=== PATIENT | female | born 1960 | race Caucasian/White ===

== ENCOUNTER 2017-07-27 13:21 | Inpatient (IN) ==
[2017-07-27] MEDS ORDERED: D5 NS 1,000 ML IV ONE (14:04)
[2017-07-27 14:08] LABS: URINE MICRO REVIEW NEEDED? NO; URINE SOURCE VOIDED
[2017-07-27 14:12] LABS: BILIRUBIN URINE NEGATIVE (NEGATIVE); BLOOD URINE TRACE (NEGATIVE); COLOR ORANGE; GLUCOSE URINE NEGATIVE (NEGATIVE); LEUKOCYTES URINE LARGE (NEGATIVE); NITRITE URINE POSITIVE (NEGATIVE); PROTEIN URINE 30 mg/dL (NEGATIVE); SP GRAVITY URINE 1.014; TURBIDITY URINE HAZY (CLEAR); UR EPITHELIAL CELLS <10 /HPF (<10); URINE BACTERIA 4+ /HPF; URINE RBC <10 /HPF (<10); URINE WBC TNTC /HPF (<10); UROBILINOGEN URINE 4 mg/dL (NORMAL)
--- NOTE | 2017-07-27 14:34 | Diag Imaging Result Doc PS360 ---
EXAM: CHEST-2 VIEWS INDICATION: cough TECHNIQUE: 2 views COMPARISON: None. FINDINGS: The lungs are grossly clear. There is no discrete pleural fluid collection or pneumothorax. There is a small hiatal hernia. The cardiac silhouette and central vasculature are grossly unremarkable. IMPRESSION: Small hiatal hernia. No definite acute pathology. Electronically signed by Lonnie Tang 07/27/2017 2:31 PM
--- NOTE | 2017-07-27 14:54 | Diag Imaging Result Doc PS360 ---
EXAM: CT ABDOMEN/PELVIS W/O CONTRAST INDICATION: left flank tenderness TECHNIQUE: Dose reduction protocol was used. COMPARISON: None. FINDINGS: There is a small hiatal hernia. There is a huge solid mass that is arising from the left kidney that measures up to 13.9 x 10.5 cm axially and up to 12.8 cm craniocaudally. Its density is heterogeneous suggesting likely internal necrosis and there are coarse calcifications scattered throughout the mass. This mass is highly worrisome for neoplasm; specifically, renal cell carcinoma. There appears to be partial obstruction of the proximal left ureter by the mass and there is mild prominence of the left renal collecting system. The right kidney is grossly unremarkable as imaged with unenhanced CT. The urinary bladder is grossly unremarkable as imaged. The liver, spleen, pancreas, and adrenal glands are grossly unremarkable. There is incidental fatty infiltration of the colonic wall, which is nonspecific but can sometimes be seen in patients with high BMI. Otherwise, the GI tract is essentially unremarkable. There is nothing that would indicate bony metastatic disease. IMPRESSION: 1.Very large left renal mass that is highly compatible with neoplasm, namely renal cell carcinoma. 2.Other incidental/nonacute findings detailed above. Electronically signed by Lonnie Tang 07/27/2017 2:51 PM
[2017-07-27 15:01] LABS: BASO% 0.1 % (0.0-0.8); EOS# 0.01 X1000 (0.0-0.7); EOS% 0.1 % (0.0-10.0); HEMATOCRIT 36.3 % (37.0-47.0); HEMOGLOBIN 12.5 g/dL (12.0-16.0); IMM GRAN# 0.02 X1000 (0.0-0.04); IMM GRAN% 0.2 % (0.0-0.5); LYMPH# 0.67 X1000 (1.2-3.4); MANUAL DIFF NEEDED? NO; MCH 30.2 PG (27-31); MCHC 34.4 g/dL (33-37); MCV 87.7 FL (81-99); MONO# 0.13 X1000 (0.11-0.59); MONO% 1.6 % (1.7-9.3); MPV 9.4 FL (7.4-10.4); PLT 202 X1000 (130-400); RBC 4.14 XMIL (4.2-5.4)
[2017-07-27 15:28] LABS: AGAP 16; ALKALINE PHOSPHATASE 113 U/L (32-104); AMYLASE 24 U/L (20-200); BUN 8 mg/dL (8-22); CALCIUM 9.4 mg/dL (8.8-10.2); CHLORIDE 91 mmol/L (98-107); COSMO 272; GOT 20 U/L (10-30); GPT 22 U/L (10-36); LIPASE 11 U/L (13-60); POTASSIUM 2.8 mmol/L (3.5-5.1); SODIUM 136 mmol/L (136-145); TCO2 29 mmol/L (25-35); TOTAL BILIRUBIN 1.37 mg/dL (0.20-1.00); TOTAL PROTEIN 6.4 g/dL (6.3-8.3)
[2017-07-27] MEDS ORDERED: ROCEPHIN 1 GM in NS 50 ML IV ONE (15:29)
[2017-07-27] MEDS ORDERED: KLOR-CON PO ONE (15:42)
--- NOTE | 2017-07-27 16:08 | PROVIDER DOCUMENTATION ---
This chart was entered by Yoko Vizcaino Scribe, acting as scribe for Keny Gale DO. HPI-Female /OB/Breast - General Chief Complaint: General Adult Stated Complaint: GENERAL ADULT Time Seen by Provider: 07/27/17 13:32 Source: reports: patient Allergies/Adverse Reactions: Patient Allergies Allergy/AdvReac Type Severity Reaction Status Date / Time No Known Allergies Allergy Verified 07/27/17 13:51 Home Medications: Home Medication List Medication Instructions Recorded Confirmed Last Taken Type Cyanocobalamin (Vitamin B-12) 2,500 mcg PO DAILY 07/27/17 07/27/17 07/27/17 History [Vitamin B12] Omeprazole [Prilosec] 20 mg PO DAILY@0700 07/27/17 07/27/17 07/27/17 History - History of Present Illness-Female /OB Nature of Presenting Problem: Pt is a 57 y/o F presents to the ED with low back pain, foul smelling urine, headache and dizziness. Pt states has lost 15 pounds in last 2 months. Pt denies fever. Pt denies hx of diabetes or HTN. Does patient report she is ?: No Location of complaint: reports: urethral Radiation: reports: none Quality of Pain: reports: aching Severity in ED: reports: mild Onset/Duration: reports: other (2 mths) Timing: reports: still present Context/Activities at Onset: reports: light activity Vaginal Symptoms: reports: foul odor Vaginal Bleeding Amount: None Urinary Symptoms: reports: low back pain Leakage of Fluid: none Modifying Factors: improves with: nothing Associated Symptoms: reports: dizziness, other (WAGONER) Similar Symptoms Previously?: Yes (present for 2 months ) Recently seen or treated by another doctor?: No Review of Systems - Adult - REVIEW OF SYSTEMS - ADULT Constitutional: reports: weight loss (15 lbs). denies: chills, fever Eyes: reports: no symptoms reported Ears, Nose, Mouth & Throat: reports: no symptoms reported Cardiovascular: reports: no symptoms reported Respiratory: reports: no symptoms reported Gastrointestinal: reports: no symptoms reported Genitourinary: reports: other (foul odor). denies: dysuria, hematuria Musculoskeletal: reports: back pain. denies: bone pain, neck pain Integumentary: reports: no symptoms reported Neurological: reports: dizziness/vertigo (dizziness), headache/migraines (WAGONER). denies: numbness, seizure, syncope Psychiatric: reports: no symptoms reported Endocrine: reports: no symptoms reported Hematologic/Lymphatic: reports: no symptoms reported Allergic/Immunologic: reports: no symptoms reported All Other Systems: Reviewed and Negative Past History - Adult - PAST MEDICAL HISTORY-ADULT Review of Records: reports: Nursing Assessment Review, Medications Reviewed, Social history reviewed & non-contributory. Major Childhood Illnesses: reports: denies history Cardiovascular: reports: denies history Respiratory: reports: denies history Gastrointestinal: reports: GERD Obstetrical/Gynecological: reports: denies history Genitourinary: reports: denies history Musculoskeletal: reports: denies history Neurological: reports: denies history Endocrine/Immune: reports: denies history Other Conditions: reports: denies history - PRIOR SURGERIES/PROCEDURES Surgical/Procedure History: reports: reviewed, not pertinent - IMMUNIZATION STATUS Childhood Immunizations: See Nurse Assessment Flu Vaccine: See Nurse Assessment - FAMILY HISTORY Family History: reviewed, not pertinent - SOCIAL HISTORY Smoking: denies Substance Use: denies Living Situation: family Physical Exam-General - PHYSICAL EXAM-ADULT Initial Vital Signs Reviewed: Yes - CONSTITUTIONAL General Appearance: appears well, alert, no apparent distress. negative: lethargic, slow to respond - EYES Eyes: PERRL/EOMI, pink conjunctivae. negative: pale conjunctivae, sunken eyes - HEAD, EARS, NOSE, MOUTH & THROAT HENMT: normal ENT inspection. negative: angioedema, hearing deficit - NECK Neck: normal inspection. negative: lymphadenopathy, tender lateral - RESPIRATORY Respiratory: chest non-tender, lungs clear, normal breath sounds. negative: crackles, rhonchi - CARDIOVASCULAR Cardiovascular: normal peripheral pulses, regular rate, rhythm. negative: tachycardia, systolic murmur, gallop/S3 - GASTROINTESTINAL (ABDOMEN) Abdominal Exam: normal bowel sounds, soft, tenderness (left flank). negative: guarding, rebound - LYMPHATIC Lymphatic: no adenopathy. negative: enlargement, streaking - MUSCULOSKELETAL Back Exam: normal inspection. negative: ecchymosis, vertebral tenderness Extremity: normal inspection. negative: deformity, erythema, tenderness - SKIN Integumentary: normal color, normal turgor, warm/dry. negative: diaphoresis, erythema, jaundice, swelling - NEUROLOGIC Neurologic: grossly normal. negative: abnormal gait, facial droop - PSYCHIATRIC Psych/Mental Status: normal mood/affect, oriented x 3. negative: paranoid, tearful Progress - PLAN OF CARE/RESULTS Progress/Plan/Lab Results: Vital Signs - 8 hr 07/27/17 13:30 Temperature 98.7 F Pulse Rate 99 H Respiratory Rate 18 Blood Pressure 132/59 O2 Sat by Pulse Oximetry 99 Laboratory Results - last 24 hr 07/27/17 07/27/17 07/27/17 13:48 14:45 14:45 WBC RBC Hgb Hct MCV MCH MCHC RDW Std Deviation Plt Count MPV Immature Gran % (Auto) Neut % (Auto) Lymph % (Auto) [place] % (Auto) Eos % (Auto) Baso % (Auto) Immature Gran # (Auto) Neut # (Auto) Lymph # (Auto) [place] # (Auto) Eos # (Auto) Baso # (Auto) Sodium 136 Potassium 2.8 L Chloride 91 L Carbon Dioxide 29 Anion Gap 16 BUN 8 Creatinine 0.8 Estimated GFR/1.73 m2 > 60 BUN/Creatinine Ratio 10 Glucose 126 H Calculated Osmolality 272 Calcium 9.4 Total Bilirubin 1.37 H AST 20 ALT 22 Alkaline Phosphatase 113 H Troponin T Oud-T-Oacpsffdipq Pept 521 H Total Protein 6.4 Albumin 4.0 Globulin 2.4 Albumin/Globulin Ratio 1.7 Amylase 24 Lipase 11 L Plasma Lactate Urine Source VOIDED Urine Color ORANGE Urine Turbidity HAZY Urine pH 6.0 Ur Specific [place] 1.014 Urine Protein 30 A Ur Glucose (Stick) NEGATIVE Ur Ketones (Stick) TRACE A Urine Blood TRACE A Urine Nitrite POSITIVE A Urine Bilirubin NEGATIVE Urobilinogen Dipstick 4 A Urine Leukocytes LARGE A Urine WBC (Auto) TNTC A Urine RBC (Auto) <10 U Epithel Cells (Auto) <10 Urine Bacteria (Auto) 4+ 07/27/17 07/27/17 07/27/17 14:45 14:47 15:00 WBC 8.35 RBC 4.14 L Hgb 12.5 Hct 36.3 L MCV 87.7 MCH 30.2 MCHC 34.4 RDW Std Deviation 13.3 Plt Count 202 MPV 9.4 Immature Gran % (Auto) 0.2 Neut % (Auto) 90.0 H Lymph % (Auto) 8.0 L [place] % (Auto) 1.6 L Eos % (Auto) 0.1 Baso % (Auto) 0.1 Immature Gran # (Auto) 0.02 Neut # (Auto) 7.51 H Lymph # (Auto) 0.67 L [place] # (Auto) 0.13 Eos # (Auto) 0.01 Baso # (Auto) 0.01 Sodium Potassium Chloride Carbon Dioxide Anion Gap BUN Creatinine Estimated GFR/1.73 m2 BUN/Creatinine Ratio Glucose Calculated Osmolality Calcium Total Bilirubin AST ALT Alkaline Phosphatase Troponin T < 0.010 Bmd-R-Cvzemborblm Pept Total Protein Albumin Globulin Albumin/Globulin Ratio Amylase Lipase Plasma Lactate 1.9 Urine Source Urine Color Urine Turbidity Urine pH Ur Specific [place] Urine Protein Ur Glucose (Stick) Ur Ketones (Stick) Urine Blood Urine Nitrite Urine Bilirubin Urobilinogen Dipstick Urine Leukocytes Urine WBC (Auto) Urine RBC (Auto) U Epithel Cells (Auto) Urine Bacteria (Auto) Orders Category Date Time Status Nursing- MD Consult Request ROUTINE Care 07/27/17 15:45 Active Nursing- MD Consult Request ROUTINE Care 07/27/17 15:45 Active Nursing- Obtain EKG once Care 07/27/17 13:58 Active MD [Physician/Provider Consults] Routine Cons 07/27/17 15:45 Ordered MD [Physician/Provider Consults] Routine Cons 07/27/17 15:45 Ordered CHEST-2 VIEWS [RAD] Stat Exams 07/27/17 13:[address] ABDOMEN/PELVIS W/O CONTRAST [CT] Stat Exams 07/27/17 13:58 Completed AMYLASE [CHEM] Stat Lab 07/27/17 14:45 Completed CBC WITH ELECTRONIC DIFF [HEME] Stat Lab 07/27/17 14:47 Completed COMPREHENSIVE METABOLIC PANEL [CHEM] Stat Lab 07/27/17 14:45 Completed LACTATE, PLASMA [CHEM] Stat Lab 07/27/17 15:00 Completed LIPASE [CHEM] Stat Lab 07/27/17 14:45 Completed PRO B-NATRIURETIC PEPTIDE Stat Lab 07/27/17 14:45 Completed TROPONIN T Stat Lab 07/27/17 14:45 Completed URINALYSIS-1 [URINALYSIS] Stat Lab 07/27/17 13:48 Completed URINE CULTURE [RM] Routine Lab 07/27/17 13:48 Received CefTRIAXONE [Rocephin] 1 gm Med 07/27/17 15:29 Discontinued 0.9% Sodium Chloride Inj [Ns] 50 ml IV NOW Dextrose 5%-0.9% NaCl Inj [D5 Ns] 1,000 ml Med 07/27/17 14:04 Discontinued IV Wide Open Potassium Chloride E.r. [Klor-Con] Med 07/27/17 15:42 Discontinued 60 meq PO NOW ONE EKG [EKG] Stat Ther 07/27/17 13:58 Ordered Transfer/Admit Order [TRANSFER] Routine Transfer 07/27/17 15:46 Ordered SPOKE WITH AND SHE HAS ACCEPTED THE ADMISSION. Result Diagrams: 07/27/17 14:47 07/27/17 14:45 - EKG 1 Time of EKG reading by physician:: 14:49 EKG Read and Signed by:: Maura Salinas EKG Interpretation (*Must complete 3 of following elements*): Abnormal Rate: 124 Rhythm: sinus tachycardia Comments: nonspecific ST and T wave abnormality. - XRAY 1 XRAY Study: Chest Impression: Normal XRAY Interpretation: Small hiatal hernia. No definite acute pathology - CT/MRI 1 CT Study: Abdomen, Pelvis Impression: Abnormal (1.Very large left renal mass that is highly compatible with neoplasm, namely renal cell carcinoma. 2.Other incidental/nonacute findings detailed above) Departure - Departure Date of Disposition Decision: 07/27/17 Time of Disposition Decision: 16:06 DIAGNOSIS: Renal mass UTI (urinary tract infection) Qualifiers: Urinary tract infection type: site unspecified Hematuria presence: without hematuria Qualified Code(s): N39.0 - Urinary tract infection, site not specified Disposition: ADMITTED INPATIENT 09 Certified Medical Emergency: Emergent Condition: Stable - Critical Care Note This patient required my direct & personal management of CC.: No Attestation - Physician/ BRANDON Attestation Patient care was provided by Advanced Practice Provider:: No The physician spent face to face time with patient:: Yes Advanced Practice Provider documentation review:: Supervising physician onsite and consulted in the evaluation and care of this patient. The physician did have a face to face encounter with the patient. This chart was documented by the indicated scribe, (Yoko Vizcaino Scribe) and accurately reflects the services I performed and decisions made by me, Keny Gale DO, as attested by the provider's signature.
--- NOTE | 2017-07-27 16:40 | EKG Report ---
Test Performed on : 07/27/2017 2:49:03 PM Test Reason : r/o CT Blood Pressure : / mmHG Vent. Rate : 124 BPM Atrial Rate : 124 BPM P-R Int : 150 ms QRS Dur : 070 ms QT Int : 330 ms P-R-T Axes : 063 069 026 degrees QTc Int : 474 ms Sinus tachycardia. Nonspecific ST and T wave abnormality Abnormal ECG When compared with ECG of 03-FEB-2008 08:49, No significant change was found Unconfirmed Result
[2017-07-27] MEDS ORDERED: PHENERGAN PO PRN (16:48)
[2017-07-27] MEDS: NS 1,000 ML IV SCH (17:19)
[2017-07-27] MEDS: ROCEPHIN 1 GM in NS 50 ML IV SCH (17:20)
[2017-07-27] MEDS: ZOFRAN IV PRN (17:20)
[2017-07-27] MEDS: TYLENOL PO PRN (17:20)
--- NOTE | 2017-07-27 18:09 | HISTORY AND PHYSICAL ---
PRIMARY CARE PROVIDER: No one. CHIEF COMPLAINT: Multi symptoms such as night sweats, nausea, dizziness, no energy, dysuria. HISTORY OF PRESENT ILLNESS: Ms. Sabina Knight is a 57-year-old female with essentially no medical history other than anxiety in the past but currently on no medications. Comes in with complaints of 2 months of decreased appetite, nausea with vomiting green bile, night sweats with chills, dizziness, no energy, weakness. For more than 2 months she has had also foul smelling urine, painful urination, urgency and frequency. That included lower back pain primarily on the left lower back. She states that about 3 weeks ago. She woke up with extreme lower leg pain and hip pain after waking up from sleep. That was a one-time occurrence. She states about 2 or 3 weeks ago she was at an event that was outside and felt like she was even going to pass out. She never went to seek medical advice. Apparently she has also lost her job 1 month ago secondary to frequent sickness and she has no insurance, and she states because of this, she does not have a primary care provider and has waited this long to seek medical advice. Urinalysis reveals that she is positive nitrite with a significant urinary tract infection. Her abdominal pelvic CT shows that she has a left renal mass that is compatible with neoplasm, specifically renal cell carcinoma. It is large in size at 13.9 x 10.5 cm up to 12.8 cm. Her symptoms are consistent with carcinoma. We will admit to the medical floor, treat all of her symptoms, her anxiety, her nausea. We will consult Urology and Oncology. PAST MEDICAL HISTORY: Anxiety. SURGICAL HISTORY: Tubal ligation and left breast biopsy x2 that were benign. SOCIAL HISTORY: Denies tobacco, alcohol. States she smoked marijuana once last month to try and help with her nausea and she states that it did help. She lost her job about 1 month ago. She lives at home alone and frequently goes to [employer]. FAMILY HISTORY: Father and grandfather had coronary artery disease, and her mother of natural causes. REVIEW OF SYSTEMS: Fourteen point review of systems were complete and all were negative except for those mentioned in above HPI. All pertinent positives were nausea, night sweats, chills, dizziness, near syncope, no energy, foul smelling urine, painful urination, urinary urgency, urinary frequency, left lower back pain. No other complaints. ALLERGIES: No known drug allergies. HOME MEDICATIONS: Vitamin B12 2500 mcg p.o. daily, Prilosec 20 mg p.o. daily. PHYSICAL EXAMINATION: VITAL SIGNS: Temperature 98.7 degrees, heart rate 136 but was 99 on admit, respiratory rate 20, blood pressure 113/60, O2 saturation 100% on room air. 5 feet 4 inches tall, 130 pounds, BMI 22.3. GENERAL: Ms. Sabina Knight is a 57-year-old female. She is in no acute distress. She is able answer questions appropriately. HEENT: Atraumatic, normocephalic. Pupils equal, round, reactive to light. Mucous membranes are dry. NECK: Trachea midline. CARDIOVASCULAR: S1, S2. Tachycardic rate and rhythm. No rubs, gallops, or murmurs. No JVD or carotid bruits. No lower extremity edema. She has got +2 dorsalis and radial pulses. PULMONARY: Clear to auscultation. Bilateral breath sounds. No accessory muscle use or work of breathing noted. Currently on room air. GI: Soft, tender in the bilateral lower quadrants. Positive bowel sounds x4. EXTREMITIES: Moves all extremities equally. SKIN: Warm, dry, intact. Somewhat pale. NEURO: A and O x4. Moves all extremities equally. LABORATORY DATA: White blood cell 8000, hemoglobin 12, hematocrit 36, platelet count 202,000. Sodium 136, potassium 2.8, BUN 8, creatinine 0.8, glucose 126, calcium 9.4, bilirubin is 1.37, AST 20, ALT 22. Alkaline phos 113. Troponin less than 0.01. ProBNP 521. Amylase 24, lipase 11, lactate 1.9. Urinalysis 30 protein, trace ketones, trace blood, positive nitrites, large leukocytes, too numerous to count white blood cells, and 4+ bacteria. IMAGING: Abdominal pelvic CT: Very large left renal mass that is highly compatible with neoplasm, namely renal cell carcinoma. Chest x-ray: Small hiatal hernia. No acute pathology. EKG: Sinus tachycardia, rate 124, QTc is 474. ASSESSMENT/PLAN: 1. Left renal mass likely with renal cell carcinoma. Urology is consulted. Oncology is consulted. Will follow their recommendations. 2. Urinary tract infections. Has been started on Rocephin. Will give IV fluid hydration. 3. Intractable nausea with some vomiting. Will do p.o. Phenergan and IV Zofran. 4. Hypokalemia. She has received 60 of p.o. potassium. Will recheck in the morning. EKG is okay, is sinus tachycardia, no ST changes. 5. Anxiety. Klonopin 3 times a day p.r.n. for anxiety. She states that this has helped in the past. 6. Gastrointestinal prophylaxis. Continue her home proton pump inhibitor. 7. Deep venous thrombosis prophylaxis. Will do SCDs. Dictated by EMMA Guzmán for Darion Loza MD Addendum: Patient seen and examined by myself. Agree with EMMA note. It reflects my assessment and plan. Patient admitted to hospital for not feeling well for last 2 weeks and mild abdominal pain. The CT of abdomen done in the ER showed left renal mass highly suspicious for renal cell carcinoma. Will consult Urology and Oncology. cc: EMMA Guzmán MD [facility]
--- NOTE | 2017-07-27 21:41 | Diag Imaging Result Doc PS360 ---
EXAM: CT ABD/PELVIS W/PO AND IV CON INDICATION: uti, renal mass TECHNIQUE: Dose reduction protocol was used. COMPARISON: Unenhanced CT dated 07/27/2017 FINDINGS: The known very large mass arising from the left kidney seen on the recent unenhanced study is again identified. It exhibits extensive enhancement at its periphery with poor enhancement centrally suggesting central necrosis. As stated previously, this is highly consistent with neoplasm, specifically renal cell carcinoma. It measures 14.0 x 10.9 cm axially. In the right kidney there is a much smaller lesion that is partially cystic but appears to enhance at its periphery. This is also suspicious for a potential neoplasm. It can be seen on image 70 of series 3 and measures up to 2.0 x 1.8 cm axially. This lesion cannot be identified on the unenhanced study due to its small size. At the lower pole of the right kidney there are a couple small simple appearing cysts. No definite lymphadenopathy is appreciated. The renal veins and arteries are patent. The urinary bladder is unremarkable. There is no evidence of metastatic disease to the other solid organs of the abdomen. The abdomen and pelvis are otherwise grossly stable as compared to the recent unenhanced study. IMPRESSION: 1.Known very large left renal mass highly consistent with neoplasm as described. 2.Much smaller suspicious right renal lesion as detailed above. 3.Otherwise, the abdomen and pelvis are essentially stable as compared to the recent unenhanced study. Electronically signed by Lonnie Tang 07/27/2017 9:39 PM
[2017-07-28] MEDS: PRILOSEC PO SCH (06:33)
[2017-07-28] MEDS: ZOFRAN IV PRN (06:33)
[2017-07-28 07:03] LABS: INR 1.04; PROTIME 10.9 Seconds (9.2-11.7); PTT 32.9 Seconds (22.0-36.0)
[2017-07-28 07:05] LABS: BASO% 0.1 % (0.0-0.8); EOS# 0.04 X1000 (0.0-0.7); EOS% 0.5 % (0.0-10.0); HEMATOCRIT 32.1 % (37.0-47.0); HEMOGLOBIN 10.9 g/dL (12.0-16.0); LYMPH# 0.84 X1000 (1.2-3.4); LYMPH% 9.5 % (20.5-51.1); MANUAL DIFF NEEDED? YES; MCH 30.2 PG (27-31); MCV 88.9 FL (81-99); MONO% 4.5 % (1.7-9.3); MPV 9.6 FL (7.4-10.4); NEUT% 85.4 % (42.2-75.2); PLT 158 X1000 (130-400); RBC 3.61 XMIL (4.2-5.4)
[2017-07-28 07:08] LABS: AGAP 12; ALBUMIN 3.5 g/dL (3.5-5.0); ALKALINE PHOSPHATASE 90 U/L (32-104); BUN 6 mg/dL (8-22); CALCIUM 8.3 mg/dL (8.8-10.2); CHLORIDE 97 mmol/L (98-107); COSMO 277; GOT 16 U/L (10-30); GPT 16 U/L (10-36); POTASSIUM 2.6 mmol/L (3.5-5.1); SODIUM 139 mmol/L (136-145); TCO2 30 mmol/L (25-35); TOTAL BILIRUBIN 0.78 mg/dL (0.20-1.00); TOTAL PROTEIN 5.4 g/dL (6.3-8.3)
[2017-07-28 07:18] LABS: BANDS 10 % (0-1); LYMPHS 2 % (21-51); MONO 2 % (1-9)
[2017-07-28] MEDS: TYLENOL PO PRN ×2 (07:21→18:24)
[2017-07-28] MEDS ORDERED: MORPHINE IV PRN (07:46)
[2017-07-28] MEDS: NS 1,000 ML IV SCH (07:50)
[2017-07-28] MEDS: POTASSIUM CHLORIDE 60 MEQ in NS 500 ML IV SCH ×2 (09:23→18:23)
[2017-07-28] MEDS: VITAMIN B-12 PO SCH (09:30)
--- NOTE | 2017-07-28 11:11 | CONSULTATION ---
DATE OF CONSULTATION: 07/28/2017 ATTENDING AND REFERRING PHYSICIAN: Hospitalist HISTORY OF PRESENT ILLNESS: This 57-year-old female was admitted with fatigue, weight loss and just not feeling well. She states this started 4 to [address] scan without contrast revealed a large left renal mass. A CT scan with oral and IV contrast confirmed the large left renal mass that meets CT criteria for malignancy. Also noted was a small lesion in the right lower pole of kidney that is also very suspicious for malignancy. This is less than 2 cm in diameter. The patient denies any hematuria. She denies any flank pains. She has no history of kidney stones. She states she occasionally has a urinary tract infection and feels like she may have one now. She states she has not seen a physician for many years. She does not have a family physician. PAST MEDICAL HISTORY: Anxiety. PAST SURGICAL HISTORY: Left breast biopsy many years ago, tubal ligation. She is G4, P1. CURRENT MEDICATIONS: Documented on the chart and include Rocephin. SOCIAL HISTORY: She denies tobacco or alcohol use. She has smoked marijuana, the last time over a month ago. REVIEW OF SYSTEMS: She denies any problems with chest pains, heart disease, diabetes, strokes, seizures or pulmonary problems. PHYSICAL EXAMINATION: General: A normally developed, well-nourished, age apparent white female, oriented in all ways and cooperative. HEENT: Normal for age. Lungs: Clear. Cardiovascular: Regular rate and rhythm with grade 2/6 holosystolic murmur. Abdomen: Mildly protuberant, soft, nontender. No hepatosplenomegaly or masses. Normal bowel sounds. : Normal external female. Atrophic mucosa. No adnexal masses or tenderness. Palpably normal bladder. Palpably normal cervix and uterus. Extremities: No cyanosis, clubbing or edema. Neurologic: No focal deficits. DIAGNOSTIC DATA: White count is 8.86, hemoglobin 10.9, hematocrit 32.1, platelets 158,000. Serum electrolytes have a sodium of 139, potassium 2.6, chloride 97, bicarb 30, BUN is 6, creatinine 0.6. IMPRESSION: 1. Large left renal mass that meets CT criteria for malignancy. 2. A less than 2 cm right lower pole renal mass that is suspicious for malignancy. 3. Hypokalemia. RECOMMENDATIONS: Discussed with the patient and family the CT scan results. Discussed the treatment would be laparoscopic robot-assisted left radical nephrectomy. Discussed that since the right lower pole mass is less than 3 cm, this could be followed, but if it gets larger, she would need a partial nephrectomy on the right side. Discussed she needs to have her medical problems corrected before surgery is scheduled (hypokalemia). Thank you for this consultation. cc: Matthias Powers MD
[2017-07-28] MEDS ORDERED: POTASSIUM CHLORIDE 60 MEQ in NS 500 ML IV SCH (12:00)
--- NOTE | 2017-07-28 13:50 | CONSULTATION ---
DATE OF CONSULTATION: 07/28/2017 REQUESTING PHYSICIAN: Dr. Gray. REASON FOR CONSULTATION: Left renal mass. HISTORY OF PRESENT ILLNESS: Patient is a 57-year-old female who was admitted with not feeling well over the last couple of months. She has had anorexia, nausea, night sweats , dizziness, tiredness and fatigue. She also has noticed low back pain mainly on the left side. She also has noticed that her urine has been foul smelling with urgency and frequency. In the ER, UA was performed which revealed findings suggestive of UTI. A CT of the abdomen, pelvis was performed which revealed a large renal mass. She was admitted to the hospital. Dr. Powers has seen her with plans for surgery sometime soon. PAST MEDICAL HISTORY: Anxiety. PAST SURGICAL HISTORY: Tubal ligation and breast biopsy. ALLERGIES: NKDA. CURRENT MEDICATIONS: Reviewed. SOCIAL HISTORY: Patient denies smoking, alcohol, or substance abuse. She is currently not working. FAMILY HISTORY: Positive for CAD. REVIEW OF SYSTEMS: As dictated above. She denies fevers or any infectious symptoms. She denies glandular enlargement, cancer of the groin. She denies blood per rectum or melena. All other review of systems are negative. PHYSICAL EXAMINATION: General: Patient is a thinly built female in no acute distress. Vital Signs: Temperature 98.3 degrees, pulse 100, blood pressure 130/58. HEENT: EOMI. PERRLA. Anicteric. Mucous membranes are moist. Cardiac: Regular rate and rhythm. Normal S1, S2. Chest: Clear to auscultation. Abdomen: Protuberant, soft, nontender without splenomegaly. Extremities: Without cyanosis, clubbing, or edema. Neurological: Alert and oriented x3. No focal motor deficits. LABS: White count 8.8, hemoglobin 10.9, platelets 158,000, BUN 6, creatinine 0.6. LFTs are normal. CT of the abdomen pelvis: Large left kidney mass measuring 14 x 10.9 cm. Small right kidney lesion measuring 2 x 1.8 cm. ASSESSMENT AND PLAN: 1. Large left kidney mass suspicious for renal cancer: Agree with Dr. Powers about surgery. She does not have evidence of metastatic disease. Postoperatively will monitor her outpatient per NCCN guidelines. 2. Small right lesion: For now continue to monitor. 3. Anemia: Check iron profile, B12, folate levels. cc: Samuel Tovar MD [facility]
--- NOTE | 2017-07-28 14:23 | PROGRESS NOTE ---
DATE: 07/28/2017 SUBJECTIVE: The patient reports feeling much better from the headache. Denies mild abdominal pain in the right flank that is better controlled. Denies any fever or chills. OBJECTIVE: Vital signs: Temperature is 98.3, heart rate 100, respiratory rate 17, blood pressure 130/58, O2 saturation is 97% on room air. General: This is a 57-year-old female lying in bed, in no acute distress. HEENT: Head is normocephalic and atraumatic. Anicteric sclerae. Pale conjunctivae. Mucous membranes are moist. Neck: Supple. No JVD. No carotid bruit. No lymphadenopathy. No thyromegaly. Cardiovascular: S1 and S2 heard. No murmurs , gallops or rubs. Regular rate and rhythm. Respiratory: Clear bilaterally to auscultation. No work of breathing or using accessory muscles. Abdomen: Soft. Nontender to palpation. Bowel sounds present. No organomegaly. Extremities: No cyanosis, clubbing or edema. Peripheral pulses present in both legs. Neurologic: The patient is alert and oriented x3. Moves all 4 extremities. Cranial nerves II through XII are grossly normal. DIAGNOSTIC DATA: White cell count is 8.86, hemoglobin 10.9, hematocrit 32.1, platelets 158. BMP is remarkable for potassium of 2.6 and glucose 133. Urine culture positive for gram-negative rods. ASSESSMENT AND PLAN: 1. Left renal mass. Most likely renal cell carcinoma. Urology has been consulted. Dr. Powers' help is appreciated. He is planning to do left radical nephrectomy. He recommends first to correct her medical issues that in this case is her hypokalemia. We will check BMP tomorrow. 2. Urinary tract infection. Urine culture is positive for gram-negative rods. We will continue with ceftriaxone, and we will check urine culture final result and will adjust antibiotic therapy accordingly. 3. Intractable nausea and vomiting, resolved. 4. Hypokalemia. She is going to receive 60 mg of potassium chloride twice daily IV. We will recheck BMP tomorrow. 5. Anxiety disorder. The patient is on Klonopin. We will continue the same management. 6. GI prophylaxis with Protonix. 7. DVT prophylaxis with SCDs. cc: Darion Loaz MD [facility]
[2017-07-28] MEDS ORDERED: ROCEPHIN 1 GM in NS 50 ML IV SCH (15:00)
[2017-07-28] MEDS: ROCEPHIN 1 GM in NS 50 ML IV SCH (17:36)
[2017-07-28] MEDS: KLONOPIN PO PRN (20:55)
[2017-07-29] MEDS: NS 1,000 ML IV SCH ×2 (04:04→18:00)
[2017-07-29] MEDS: KLONOPIN PO PRN ×3 (06:18→22:13)
[2017-07-29] MEDS: PRILOSEC PO SCH (06:20)
[2017-07-29 07:39] LABS: AGAP 12; BUN 3 mg/dL (8-22); CALCIUM 7.9 mg/dL (8.8-10.2); CHLORIDE 101 mmol/L (98-107); COSMO 276; POTASSIUM 2.8 mmol/L (3.5-5.1); SODIUM 139 mmol/L (136-145); TCO2 26 mmol/L (25-35)
[2017-07-29] MEDS: VITAMIN B-12 PO SCH (09:49)
[2017-07-29] MEDS ORDERED: POTASSIUM CHLORIDE 80 MEQ in NS 500 ML IV ONE ×2 (11:26→23:30)
--- NOTE | 2017-07-29 14:26 | PROGRESS NOTE ---
DATE: 07/29/2017 SUBJECTIVE: Patient reports feeling fine. Headache is resolved. She is still having diarrhea up to 6-7 times daily. That started after she was started on antibiotics. Denies any fever or chills. No bloody stools. OBJECTIVE: Vital Signs: Temperature 98.1 degrees, heart rate 106, respiratory 20, blood pressure 110/70, O2 saturation 97% on room air. General Examination: This is a 57-year-old female lying in bed, in no acute distress. HEENT: Head is normocephalic, atraumatic. Neck: Supple. No JVD noted. No carotid bruits. Cardiovascular: S1, S2 heard. No murmurs, gallops, or rubs. Regular rate and rhythm. Respiratory: Clear bilaterally to auscultation. No work of breathing or using accessory muscles. Abdomen: Soft, nontender to palpation. Bowel sounds present. No organomegaly. Extremities: No clubbing, cyanosis, or edema. Peripheral pulses present in both legs. Neurological: Patient is alert and oriented x3. Moves 4 extremities. Cranial nerves 2 through 12 grossly normal. LABORATORY DATA: The BMP shows potassium 2.8. The rest of the exam normal. ASSESSMENT AND PLAN: 1. Left renal mass. More than likely it is renal cell carcinoma. Plan for this patient from a urology standpoint is to do a laparoscopic left radical nephrectomy as an outpatient. We will follow recommendations. 2. Urinary tract infection. Urine culture reveals E. coli almost pansensitive. Currently she is on ceftriaxone. Blood cultures also positive for gram-negative rods. At this time we are going to continue with the same management. As soon as we get the results of the blood culture we will adjust antibiotics accordingly. 3. Acute diarrhea. It is most likely secondary to antibiotics because she reported that this diarrhea started when we started ceftriaxone. We are going to check C. difficile antigen and toxin in the stools and if that is negative we will provide medications for diarrhea, like Lomotil. 4. Hypokalemia. The patient received 120 mg IV of potassium yesterday but is still very low because of the diarrhea. We are going to provide 80 mg IV twice daily, 8 hours apart. We will check BMP tomorrow. 5. Anxiety disorder. Patient is on Klonopin and she reports that she is feeling fine. 6. Gastrointestinal prophylaxis with Protonix. 7. Deep vein thrombosis prophylaxis with SCDs. cc: Darion Loza MD
[2017-07-29] MEDS: ROCEPHIN 1 GM in NS 50 ML IV SCH (16:35)
[2017-07-29] MEDS: TYLENOL PO PRN (22:15)
--- NOTE | 2017-07-30 06:12 | EKG Report ---
Test Performed on : 07/28/2017 06:59:20 AM Test Reason : r/o AK Blood Pressure : / mmHG Vent. Rate : 103 BPM Atrial Rate : 103 BPM P-R Int : 166 ms QRS Dur : 084 ms QT Int : 370 ms P-R-T Axes : 064 071 025 degrees QTc Int : 484 ms Sinus tachycardia. Nonspecific ST abnormality Abnormal ECG When compared with ECG of 27-JUL-2017 14:49, (Unconfirmed) No significant change was found Confirmed by Lavon Nichols MD ([id number]) on 07/30/2017 8:00:30 AM
[2017-07-30] MEDS: NS 1,000 ML IV SCH (06:23)
[2017-07-30] MEDS: PRILOSEC PO SCH (06:23)
[2017-07-30] MEDS: KLONOPIN PO PRN ×2 (06:29→20:57)
[2017-07-30 06:30] LABS: MANUAL DIFF NEEDED? NO
[2017-07-30 06:46] LABS: BASO% 0.1 % (0.0-0.8); EOS% 1.1 % (0.0-10.0); HEMATOCRIT 29.5 % (37.0-47.0); HEMOGLOBIN 9.8 g/dL (12.0-16.0); IMM GRAN# 0.02 X1000 (0.0-0.04); IMM GRAN% 0.2 % (0.0-0.5); LYMPH# 1.21 X1000 (1.2-3.4); LYMPH% 13.7 % (20.5-51.1); MCH 29.9 PG (27-31); MCHC 33.2 g/dL (33-37); MCV 89.9 FL (81-99); MONO# 0.62 X1000 (0.11-0.59); MPV 10.2 FL (7.4-10.4); NEUT% 77.9 % (42.2-75.2); PLT 147 X1000 (130-400); RBC 3.28 XMIL (4.2-5.4)
[2017-07-30 07:03] LABS: AGAP 10; BUN 3 mg/dL (8-22); CALCIUM 8.3 mg/dL (8.8-10.2); CHLORIDE 105 mmol/L (98-107); COSMO 278; POTASSIUM 3.5 mmol/L (3.5-5.1); SODIUM 141 mmol/L (136-145); TCO2 26 mmol/L (25-35)
[2017-07-30 08:09] LABS: IRON SATURATION 10 %; TIBC 164 ug/dL; TOTAL IRON 16 ug/dL (49-151); UNBOUND IRON 148 ug/dL (112-346)
--- NOTE | 2017-07-30 09:38 | Diag Imaging Result Doc PS360 ---
EXAM: CT THORAX W/CONTRAST - 07/30/2017 HISTORY: suspected mets from renal cell carcinoma TECHNIQUE: With intravenous contrast. Low-dose protocol. COMPARISON: None. FINDINGS: There is bilateral dependent atelectasis. Lungs otherwise appear essentially clear. There are no pulmonary nodular lesions identified. There are tiny bilateral pleural effusions. There is no consolidation or pneumothorax identified. There are no abnormally enlarged mediastinal or hilar lymph nodes identified. IMPRESSION: Bilateral dependent atelectasis. Tiny bilateral pleural effusions. No other evidence of metastatic disease to the thorax. Electronically signed by Zi Flores 07/30/2017 9:35 AM
--- NOTE | 2017-07-30 09:49 | Diag Imaging Result Doc PS360 ---
EXAM: MRI BRAIN W W/O CONTRAST - 07/30/2017 HISTORY: brain mets suspected TECHNIQUE: Without and with contrast COMPARISON: None. FINDINGS: There are mild chronic microvascular ischemic changes. The diffusion weighted images show no areas of restricted diffusion (no evidence of acute infarct). There is no evidence of hemorrhage, mass effect, midline shift, or hydrocephalus. There are no other substantial signal abnormalities identified. There is no abnormal enhancement identified. IMPRESSION: No visible acute intracranial abnormality. No evidence of metastatic disease to the brain. Electronically signed by Zi Flores 07/30/2017 9:47 AM
[2017-07-30] MEDS: VITAMIN B-12 PO SCH (11:04)
--- NOTE | 2017-07-30 14:51 | PROGRESS NOTE ---
DATE: 07/30/2017 SUBJECTIVE: Patient reports feeling fine. Denies diarrhea. Just loose stools, 2 or 3 yesterday. The headache is resolved. OBJECTIVE: Vital Signs: Temperature 98.3 degrees, heart rate 102, respiratory rate 20, blood pressure 137/64. O2 saturation 100% on room air. General: This is a 57-year-old female lying in bed, in no acute distress. HEENT: Head is normocephalic, atraumatic. Neck: Supple. No JVD noted. No carotid bruits. Cardiovascular: S1, S2 heard. No murmurs, gallops, or rubs. Regular rate and rhythm. Respiratory: Clear bilaterally to auscultation. No work of breathing or using accessory muscles. Abdomen: Soft, nontender to palpation. Bowel sounds present. No organomegaly. Extremities: No clubbing, cyanosis, or edema. Peripheral pulses present in both legs. Neurological: Patient alert, oriented x3. Moves 4 extremities. Cranial nerves 2-12 grossly normal neck. LABORATORY DATA: The CBC shows hemoglobin 9.8, hematocrit 29.5, bilirubin 147, with BMP that is completely unremarkable with potassium 3.5. C. difficile stool sample negative for antigen and toxin. ASSESSMENT AND PLAN: 1. Left renal mass. We have talked with Dr. Powers today and he is planning to do laparoscopic left radical nephrectomy this . We have talked over the convenience for this patient to stay here being treated for E. coli bacteremia and UTI. So we decided to keep this patient until next , and according to him, she may need to stay probably 2 more days from the time of surgery. We will follow his recommendations. 2. Urine tract infection/E. coli bacteremia. The urine culture and blood culture shows E. coli pansensitive. We have switched ceftriaxone to cefazolin 2 g IV q.8 hours. We will continue with the same management and we have ordered new blood cultures today. 3. Acute diarrhea. That condition is getting better. C. difficile infection has been ruled out. 4. Hypokalemia. Resolved. 5. Anxiety disorder. We will continue with Klonopin. 6. GI prophylaxis. On Protonix. 7. Deep vein thrombosis prophylaxis. On SCDs. cc: Darion Loza MD
[2017-07-30] MEDS: MORPHINE IV PRN ×3 (15:15→20:57)
[2017-07-30] MEDS: KEFZOL 2 GM/D5W 2 GM/50 ML IVPB IV SCH (15:22)
[2017-07-30] MEDS: ZOFRAN IV PRN ×2 (15:41→20:56)
[2017-07-30] MEDS: TYLENOL PO PRN (20:57)
[2017-07-31] MEDS: KEFZOL 2 GM/D5W 2 GM/50 ML IVPB IV SCH ×3 (00:30→20:23)
[2017-07-31] MEDS: PRILOSEC PO SCH (06:00)
[2017-07-31] MEDS: KLONOPIN PO PRN ×2 (06:00→14:13)
[2017-07-31 06:34] LABS: MANUAL DIFF NEEDED? NO
--- NOTE | 2017-07-31 06:36 | EKG Report ---
Test Performed on : 07/30/2017 2:56:28 PM Test Reason : chest pain Blood Pressure : / mmHG Vent. Rate : 100 BPM Atrial Rate : 100 BPM P-R Int : 168 ms QRS Dur : 076 ms QT Int : 358 ms P-R-T Axes : 046 058 027 degrees QTc Int : 461 ms Normal sinus rhythm. Normal ECG When compared with ECG of 28-JUL-2017 06:59, No significant change was found Confirmed by Osvaldo SOSA, Misbah Tamez ([id number]) on 08/01/2017 9:54:22 AM
[2017-07-31 06:40] LABS: BASO% 0.1 % (0.0-0.8); EOS# 0.14 X1000 (0.0-0.7); EOS% 1.8 % (0.0-10.0); HEMATOCRIT 31.1 % (37.0-47.0); HEMOGLOBIN 10.2 g/dL (12.0-16.0); IMM GRAN# 0.04 X1000 (0.0-0.04); IMM GRAN% 0.5 % (0.0-0.5); LYMPH# 0.97 X1000 (1.2-3.4); LYMPH% 12.6 % (20.5-51.1); MCH 29.5 PG (27-31); MCHC 32.8 g/dL (33-37); MCV 89.9 FL (81-99); MONO# 0.48 X1000 (0.11-0.59); MONO% 6.2 % (1.7-9.3); NEUT% 78.8 % (42.2-75.2); PLT 197 X1000 (130-400); RBC 3.46 XMIL (4.2-5.4)
[2017-07-31 06:55] LABS: AGAP 11; BUN 3 mg/dL (8-22); CALCIUM 8.5 mg/dL (8.8-10.2); CHLORIDE 102 mmol/L (98-107); COSMO 284; POTASSIUM 3.2 mmol/L (3.5-5.1); SODIUM 144 mmol/L (136-145); TCO2 31 mmol/L (25-35)
[2017-07-31] MEDS: TYLENOL PO PRN (08:26)
[2017-07-31] MEDS: VITAMIN B-12 PO SCH (08:26)
[2017-07-31] MEDS ORDERED: POTASSIUM CHLORIDE 60 MEQ in NS 500 ML IV ONE (09:38)
[2017-07-31] MEDS: ZOFRAN IV PRN (10:53)
[2017-07-31] MEDS: MORPHINE IV PRN ×3 (10:54→20:23)
--- NOTE | 2017-07-31 12:00 | PROGRESS NOTE ---
DATE: 07/31/2017 SUBJECTIVE: The patient reports feeling fine. Denies any diarrhea. Some loose stools reported. No more headaches. OBJECTIVE: Vital Signs: Temperature 98 degrees, heart rate 101, respiratory rate 18, blood pressure 118/65, O2 saturation 96% on room air. General Examination: This is a 57-year-old female lying in bed, in no acute distress. HEENT: Head is normocephalic, atraumatic. Neck: Supple. No JVD noted. No carotid bruits. No lymphadenopathy. Cardiovascular: S1, S2 heard. No murmurs, gallops, or rubs. Regular rate and rhythm. Respiratory: Clear bilaterally to auscultation. No work of breathing or using accessory muscles. Abdomen: Soft, nontender to palpation. Bowel sounds present. No organomegaly. Extremities: No clubbing, cyanosis, or edema. Peripheral pulses present in both legs. Neurological: Patient alert oriented x3. Moves 4 extremities. Cranial nerves 2-12 grossly normal. LABORATORY DATA: Remarkable for potassium 3.2. ASSESSMENT AND PLAN: 1. Left renal mass. The patient discovered this renal mass because was not feeling okay, feeling fatigued, and CT of the abdomen showed this finding. Evaluated but Dr. Powers. Everything has been arranged to have a robotic left radical nephrectomy this . She probably needs to stay 2 more days after surgery. We will follow his recommendations. 2. Escherichia coli urinary tract infection/Escherichia coli bacteremia. As we mentioned before, urine and blood cultures shows Escherichia coli pansensitive. Currently, we have switched to ceftriaxone to cefazolin from yesterday. We are going to continue with the same management. Blood cultures has been ordered from yesterday. At this point, we are waiting for the results of the blood culture and if that is negative, we are going to continue with antibiotics, either IV or oral for 2 weeks. 3. Acute diarrhea. That condition is getting better. Actually, we have ordered a Clostridium difficile stool and toxin, and that came negative. 4. Hypokalemia. Potassium is low at 3.2, we are going to replete it. We are going to check basic metabolic panel tomorrow. 5. Anxiety disorder. We will continue with Klonopin. 6. Gastrointestinal prophylaxis. Patient is on Protonix. 7. Deep vein thrombosis prophylaxis on sequential compression devices. cc: Darion Loza MD [facility]
[2017-07-31] MEDS ORDERED: NS 500 ML ONE (14:13)
[2017-08-01] MEDS: KEFZOL 2 GM/D5W 2 GM/50 ML IVPB IV SCH ×3 (05:03→21:02)
[2017-08-01] MEDS: KLONOPIN PO PRN (05:08)
[2017-08-01] MEDS: PRILOSEC PO SCH (06:08)
[2017-08-01 06:48] LABS: MANUAL DIFF NEEDED? NO
[2017-08-01 07:01] LABS: BASO% 0.3 % (0.0-0.8); EOS# 0.16 X1000 (0.0-0.7); EOS% 2.2 % (0.0-10.0); HEMATOCRIT 31.9 % (37.0-47.0); HEMOGLOBIN 10.6 g/dL (12.0-16.0); IMM GRAN# 0.04 X1000 (0.0-0.04); IMM GRAN% 0.5 % (0.0-0.5); LYMPH# 1.23 X1000 (1.2-3.4); LYMPH% 16.8 % (20.5-51.1); MCH 29.9 PG (27-31); MCHC 33.2 g/dL (33-37); MCV 90.1 FL (81-99); MONO# 0.58 X1000 (0.11-0.59); MONO% 7.9 % (1.7-9.3); NEUT% 72.3 % (42.2-75.2); PLT 234 X1000 (130-400); RBC 3.54 XMIL (4.2-5.4)
[2017-08-01 07:12] LABS: AGAP 8; BUN 3 mg/dL (8-22); CALCIUM 8.7 mg/dL (8.8-10.2); CHLORIDE 100 mmol/L (98-107); COSMO 274; POTASSIUM 3.5 mmol/L (3.5-5.1); SODIUM 139 mmol/L (136-145); TCO2 31 mmol/L (25-35)
[2017-08-01] MEDS: VITAMIN B-12 PO SCH (08:56)
[2017-08-01] MEDS ORDERED: CITRATE OF MAGNESIA PO ONE (14:26)
--- NOTE | 2017-08-01 17:41 | PROGRESS NOTE ---
DATE: 08/01/2017 SUBJECTIVE: Today Ms. Knight refers to be doing a little better. Feels some a little stronger than before. OBJECTIVE: Vital Signs: Stable. Blood pressure is 126/59, pulse of 100, respirations 19, temperature 97.4 degrees. General: Ms. Knight is a 57-year-old female. She is in bed. BMI is 21.5. She is not in any distress. HEENT: Mucosa is pink and moist. Anicteric and acyanotic. Neck: Supple. Chest: Air entry is bilaterally reduced. There are a few bibasilar crepitations. Cardiovascular: Regular rate and rhythm. There are no murmurs, no rubs, no gallops. Abdomen: Soft, nontender. There is no hepatosplenomegaly. Bowel sounds are present. Extremities: No pedal edema. Distal pulses are present. 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 There are no focal neurological deficits. LABORATORY DATA: Has been reviewed. Hemoglobin is 10.6. Chemistries reviewed completely unremarkable. Patient's folate is 4.9. REVIEW OF IMAGING STUDIES: A chest CT scan which was done shows bilateral dependent atelectasis, tiny bilateral pleural effusions. No evidence of disease. The brain MRI which was done on the shows no visible acute intracranial abnormality. No evidence of metastatic disease. A CT scan of the abdomen and pelvis shows a very large left renal mass which is highly consistent with neoplasm. ASSESSMENT: 1. Left renal mass suspicious for malignancy. The patient will be undergoing robotic left radical nephrectomy tomorrow. Will keep her nothing by mouth after midnight and of course make sure she is not on any anticoagulant. 2. Escherichia coli urinary tract infection. We will continue with the current antibiotics. 3. Diarrhea is improved. 4. Normocytic anemia likely secondary to chronic illness as well as relative iron deficiency and folate deficiency. We will continue to replace the folate and keep an eye on the hemoglobin and hematocrit. cc: Hira Wong MD
[2017-08-02] MEDS: KEFZOL 2 GM/D5W 2 GM/50 ML IVPB IV SCH ×3 (05:32→21:36)
[2017-08-02] MEDS ORDERED: DIPRIVAN 1% ONE (06:14)
[2017-08-02] MEDS ORDERED: FENTANYL ONE (06:14)
[2017-08-02] MEDS ORDERED: VERSED ONE (06:14)
[2017-08-02] MEDS ORDERED: NORCURON ONE ×2 (06:22→10:12)
[2017-08-02] MEDS ORDERED: OFIRMEV 1000 MG/ISOTONIC SOLN 1,000 MG/100 ML BOTTLE ONE ×2 (06:22→12:57)
[2017-08-02] MEDS ORDERED: NEOSTIGMINE ONE (06:22)
[2017-08-02] MEDS ORDERED: XYLOCAINE-MPF 2% ONE (06:22)
[2017-08-02] MEDS ORDERED: QUELICIN (DOSE) ONE (06:22)
[2017-08-02] MEDS ORDERED: STERILE WATER INJ. ONE ×2 (06:22→10:12)
[2017-08-02] MEDS ORDERED: ZOFRAN ONE (06:22)
[2017-08-02] MEDS ORDERED: ROBINUL ONE (06:22)
[2017-08-02] MEDS: PRILOSEC PO SCH (06:53)
[2017-08-02 07:09] LABS: MANUAL DIFF NEEDED? NO
[2017-08-02 07:17] LABS: BASO% 0.2 % (0.0-0.8); EOS# 0.18 X1000 (0.0-0.7); EOS% 2.9 % (0.0-10.0); HEMOGLOBIN 10.9 g/dL (12.0-16.0); IMM GRAN# 0.05 X1000 (0.0-0.04); IMM GRAN% 0.8 % (0.0-0.5); LYMPH# 1.11 X1000 (1.2-3.4); LYMPH% 18.2 % (20.5-51.1); MCH 29.7 PG (27-31); MCV 89.9 FL (81-99); MONO# 0.45 X1000 (0.11-0.59); MONO% 7.4 % (1.7-9.3); NEUT% 70.5 % (42.2-75.2); PLT 296 X1000 (130-400); RBC 3.67 XMIL (4.2-5.4)
[2017-08-02] MEDS ORDERED: MORPHINE ONE (07:44)
[2017-08-02 08:00] LABS: URINE MICRO REVIEW NEEDED? NO; URINE SOURCE CATH
[2017-08-02 08:01] LABS: AGAP 11; BUN 7 mg/dL (8-22); CALCIUM 8.8 mg/dL (8.8-10.2); CHLORIDE 99 mmol/L (98-107); COSMO 279; POTASSIUM 3.9 mmol/L (3.5-5.1); SODIUM 141 mmol/L (136-145); TCO2 31 mmol/L (25-35)
[2017-08-02 08:04] LABS: BILIRUBIN URINE NEGATIVE (NEGATIVE); BLOOD URINE NEGATIVE (NEGATIVE); COLOR YELLOW; GLUCOSE URINE NEGATIVE (NEGATIVE); LEUKOCYTES URINE NEGATIVE (NEGATIVE); NITRITE URINE NEGATIVE (NEGATIVE); PH URINE 8.5; PROTEIN URINE TRACE mg/dL (NEGATIVE); SP GRAVITY URINE 1.017; TURBIDITY URINE CLEAR (CLEAR); UROBILINOGEN URINE NORMAL (NORMAL)
[2017-08-02 08:06] LABS: UR EPITHELIAL CELLS <10 /HPF (<10); URINE BACTERIA NEGATIVE /HPF; URINE RBC <10 /HPF (<10); URINE WBC <10 /HPF (<10)
[2017-08-02] MEDS ORDERED: MARCAINE 0.25% PF ONE (09:51)
[2017-08-02] MEDS ORDERED: KEFZOL 2 GM/D5W 2 GM/50 ML IVPB ONE (12:12)
[2017-08-02] MEDS ORDERED: NS 1,000 ML ONE (12:58)
[2017-08-02] MEDS ORDERED: DITROPAN PO PRN (13:10)
[2017-08-02] MEDS ORDERED: BENADRYL IV PRN (13:10)
[2017-08-02] MEDS ORDERED: LABETALOL IV PRN (13:10)
[2017-08-02] MEDS ORDERED: B & O 15A SUPP PR PRN (13:10)
[2017-08-02] MEDS ORDERED: BENADRYL LIQUID PO PRN (13:10)
[2017-08-02] MEDS: MORPHINE ONE ×2 (13:30→13:40)
--- NOTE | 2017-08-02 14:23 | Diag Imaging Result Doc PS360 ---
EXAM: CHEST-PORTABLE INDICATION: post op nephrectomy TECHNIQUE: One view COMPARISON: 07/27/2017 FINDINGS: There are increased central vascular markings suggesting pulmonary venous congestion. There is an infiltrate at the right lung base likely representing edema. There is probably a small right effusion. No definite pneumothorax can be identified. However, there is subcutaneous emphysema in the supraclavicular region on the left at the base of the neck. Cardiac silhouette is grossly unremarkable. IMPRESSION: 1.Suggestion of bilateral pulmonary venous congestion and an infiltrate at the right lung base. Follow-up radiograph is recommended. 2.Nonspecific subcutaneous emphysema in the left supraclavicular region. Electronically signed by Lonnie Tang 08/02/2017 2:21 PM
[2017-08-02] MEDS: NS 1,000 ML IV SCH (15:17)
[2017-08-02] MEDS: VITAMIN B-12 PO SCH (15:32)
[2017-08-02 15:48] LABS: HEMATOCRIT 32.8 % (37.0-47.0); MCH 29.8 PG (27-31); MCHC 33.5 g/dL (33-37); MCV 88.9 FL (81-99); MPV 9.6 FL (7.4-10.4); RBC 3.69 XMIL (4.2-5.4)
[2017-08-02 16:02] LABS: AGAP 8; BUN 6 mg/dL (8-22); CALCIUM 7.7 mg/dL (8.8-10.2); CHLORIDE 102 mmol/L (98-107); COSMO 274; POTASSIUM 4.1 mmol/L (3.5-5.1); SODIUM 138 mmol/L (136-145); TCO2 28 mmol/L (25-35)
[2017-08-02] MEDS: OXY IR PO PRN (17:40)
[2017-08-02] MEDS: ZOFRAN IV PRN (17:44)
--- NOTE | 2017-08-02 18:13 | OPERATIVE NOTE ---
PROCEDURE DATE: 08/02/2017 PREOPERATIVE DIAGNOSIS: Large left renal mass. POSTOPERATIVE DIAGNOSIS: Large left renal mass. PROCEDURE PERFORMED: Laparoscopic robot-assisted left radical nephrectomy. SURGEON: Matthias Powers MD ANESTHESIA: General endotracheal. FINDINGS: Large left renal mass. INDICATIONS FOR PROCEDURE: This 57-year-old female has a history of weight loss and not feeling well. Evaluation revealed a large left renal mass (about 12 cm in diameter) with no evidence of metastatic disease. DESCRIPTION OF PROCEDURE: After informed consent was obtained from the patient and her receiving IV antibiotics, she was taken to the main OR and placed in the supine position. General endotracheal anesthesia was achieved. A 16-Khmer Arenas catheter was placed. She was then placed with her left side elevated to about 40 degrees. She was secured to the table, such that the table could be rotated all the way to her left and then she would become almost horizontal and rotated all the way to her right to be placed in a flank position. She was also positioned over the break in the table and the table was flexed to about 30 degrees. She was then prepped and draped sterilely for abdominal and left flank surgery. A pneumoperitoneum was achieved with the Veress needle that was placed approximately 5 cm above the umbilicus in the midline. This area was incised such that a 12 mm trocar could be placed to place the camera port. The remaining robot trocars were placed under direct vision. The #2 arm was placed in the midclavicular line just below the costal margin. The #1 arm was placed in the midclavicular line just below the umbilicus. The #4 arm was placed just above the anterior superior iliac spine. The program assistant port was placed in the midline just below the umbilicus. After the robot trocars were placed, the table was rotated such that she was in full flank position. The robot was docked. The procedure was started by taking down adhesions. The mass was very large and filled up most of the abdominal cavity on the left side. The colon mesentery was taken down sharply such that the colon could be reflected medially. The mass had pushed the spleen up and medially along with the pancreas and adrenal gland. After the colon was completely reflected, attempts were made to dissect between the mass in the spleen but the mass was pushed up into the spleen. The lower pole was dissected free from the psoas muscle. The ureter was visualized and the fourth arm was used to place the kidney on stretch and the kidney was sharply dissected off the psoas muscle. There were very large vessels going into the large renal mass and these were taken down either with the PK dissector or clips. After the kidney was dissected off the psoas muscle, the pedicle was found and placed on stretch. The artery and vein were visualized. The artery was dissected free and taken down with an Endo-CECILIO vascular load. The medium sized abdiel were used. The vein was taken down similarly. The kidney was then sharply dissected free off the psoas muscle and the upper pole was approached cautiously. It was found the upper pole was lateral to the spleen and this was bluntly and sharply taken down. Again, there were large tumor vessels encountered and these were taken down with the PlasmaKinetic engine manager and/or clips. The kidney was finally dissected completely free. The ureter was then taken down between Hem-o-Francisco clips. The renal bed was irrigated and the pneumoperitoneum was dropped to 2 cm of water. There were no bleeding areas seen. Surgicel SNoW was placed along the bed of the spleen and over the pedicle. The kidney was grasped through the program assistant port with graspers. A pneumoperitoneum was resolved and the robot undocked. The patient was then placed as horizontal as possible by rotating her to her left. The program assistant port incision was extended below the umbilicus down to just above the pubic bone. The subcutaneous tissue was incised with Bovie electrocautery. The program assistant port fascia was incised such that the trocar could be pulled back, leaving the grasping forceps in place. The surgeon's finger was then placed under the abdominal rectus fascia and this was incised to the limits of the skin incision with Bovie electrocautery. The kidney was pulled back and grasped with the surgeon's hand, pulled out of the abdominal cavity, and sent to Pathology. The abdominal rectus fascia was reapproximated with a running suture of #1 Maxon. In the 12 mm port for the camera, the fascia was reapproximated with an interrupted suture of 2-0 Vicryl. The skin was reapproximated with clips. Island dressings were placed. Total blood loss was about 900 mL. She received 1 unit of packed red blood cells intraoperatively and will receive 1 unit in the recovery room. She tolerated the procedure well and was taken to the recovery room in good condition. cc: Matthias Powers MD
--- NOTE | 2017-08-02 19:32 | PROGRESS NOTE ---
DATE: 08/02/2017 SUBJECTIVE: This morning Ms. Knight referred to be doing relatively fine. She was just waiting for her surgery to be done. Denies any complaints. OBJECTIVE: General: Ms. Knight is a 57-year-old female. She looks slightly undernourished. Mucosa is pink and moist, anicteric, acyanotic. Neck: Supple. Chest: Clear. Cardiovascular: Regular rate and rhythm. Abdomen: Soft and nontender. Extremities: No pedal edema. 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 No focal neurological deficits. LABORATORY DATA: WBC 8.35, hemoglobin 11.0, platelet count 244. Chemistries reviewed, unremarkable. ASSESSMENT: 1. Left renal mass suspicious for malignancy. The patient is pending left robotic radical nephrectomy. 2. E. coli urinary tract infection with bacteremia. The patient is on antibiotics, cefazolin. 3. Diarrhea is improved. 4. Normocytic anemia secondary to chronic illness. 5. Relative iron deficiency and folate deficiency. Will continue to replace. In general, I feel Ms. Knight is stable. She is pending surgery today. Will review her again after the surgery. cc: Hira Wong MD
[2017-08-02] MEDS: OFIRMEV 1000 MG/ISOTONIC SOLN 1,000 MG/100 ML BOTTLE IV SCH (21:18)
[2017-08-02] MEDS: MORPHINE IV PRN (21:20)
[2017-08-03] MEDS: NS 1,000 ML IV SCH (00:10)
[2017-08-03] MEDS: COLACE PO SCH ×2 (00:11→09:15)
[2017-08-03] MEDS: PEPCID PO SCH ×3 (00:11→09:16)
[2017-08-03] MEDS: OFIRMEV 1000 MG/ISOTONIC SOLN 1,000 MG/100 ML BOTTLE IV SCH ×2 (04:18→09:12)
[2017-08-03] MEDS: MORPHINE IV PRN ×6 (04:23→23:58)
[2017-08-03] MEDS: KEFZOL 2 GM/D5W 2 GM/50 ML IVPB IV SCH ×2 (04:46→14:29)
[2017-08-03 05:12] LABS: MANUAL DIFF NEEDED? NO
[2017-08-03 05:33] LABS: BASO% 0.2 % (0.0-0.8); EOS# 0.08 X1000 (0.0-0.7); EOS% 1.2 % (0.0-10.0); HEMATOCRIT 33.5 % (37.0-47.0); HEMOGLOBIN 11.3 g/dL (12.0-16.0); IMM GRAN# 0.04 X1000 (0.0-0.04); IMM GRAN% 0.6 % (0.0-0.5); LYMPH# 0.94 X1000 (1.2-3.4); LYMPH% 14.2 % (20.5-51.1); MCH 29.1 PG (27-31); MCHC 33.7 g/dL (33-37); MCV 86.3 FL (81-99); MONO# 0.51 X1000 (0.11-0.59); MONO% 7.7 % (1.7-9.3); MPV 9.7 FL (7.4-10.4); NEUT% 76.1 % (42.2-75.2); PLT 252 X1000 (130-400); RBC 3.88 XMIL (4.2-5.4)
[2017-08-03 05:35] LABS: AGAP 11; BUN 6 mg/dL (8-22); CALCIUM 8.4 mg/dL (8.8-10.2); CHLORIDE 101 mmol/L (98-107); COSMO 275; POTASSIUM 3.9 mmol/L (3.5-5.1); SODIUM 139 mmol/L (136-145); TCO2 27 mmol/L (25-35)
[2017-08-03] MEDS: PRILOSEC PO SCH ×2 (05:49→06:50)
[2017-08-03] MEDS: ZOFRAN IV PRN ×3 (09:07→17:37)
[2017-08-03] MEDS: VITAMIN B-12 PO SCH (09:18)
[2017-08-03] MEDS: OXY IR PO PRN (15:24)
--- NOTE | 2017-08-03 18:06 | PROGRESS NOTE ---
DATE: 08/03/2017 SUBJECTIVE: Today Ms. Knight referred to be hurting. She is immediate postop since yesterday but no vomiting. OBJECTIVE: Vitals: Blood pressure is 138/76, pulse of 89, respirations 16, temperature 98.2 degrees. General: Sabina Cook is a 57-year-old female. She is in bed. She is not in any distress. HEENT: Mucosa is pink and moist. Anicteric. Acyanotic. Neck: Supple. Chest: Good air entry bilateral. There is no crepitations, no rhonchi. Cardiovascular: Regular rate and rhythm. There is no murmurs, no rubs, no gallops. Abdomen: Soft, is tender all over in the abdominal cavity. No rebound, no hepatosplenomegaly. On the anterior abdominal wall there is different plasters on the anterior abdominal wall consistent with recent surgery which was laparoscopic. Extremities: No pedal edema. REBAR FABRICATOR: Patient is awake, alert and oriented. There is no focal neurological deficit. LABORATORY DATA: WBC is 11.3, patient did have 2 PRBC transfused yesterday during and after the surgery. Chemistry is also reviewed completely unremarkable. ASSESSMENT: 1. Left renal mass suspicious for malignancy. Patient is status post left robotic radical nephrectomy. Is currently having some postop abdominal discomfort. We are going to continue to address this with pain management. Will be awaiting the pathology report. 2. Escherichia coli urinary tract infection with bacteremia. Patient is on cefazolin. Today is day 7 on antibiotics and we plan to treat this for 10 days. 3. Normocytic anemia secondary to chronic illness. 4. Folate deficiency. Will continue to replace this. 5. Relative iron deficiency. Will also continue to replace iron. cc: Hira Wong MD
[2017-08-04] MEDS: ZOFRAN IV PRN ×2 (00:01→04:39)
[2017-08-04] MEDS: COLACE PO SCH ×2 (00:30→08:27)
[2017-08-04] MEDS: KEFZOL 2 GM/D5W 2 GM/50 ML IVPB IV SCH ×2 (00:31→02:49)
[2017-08-04] MEDS: PEPCID PO SCH ×3 (00:32→08:27)
[2017-08-04] MEDS: FERROUS SULFATE PO SCH ×2 (00:36→08:27)
[2017-08-04] MEDS: MORPHINE IV PRN (04:39)
[2017-08-04 05:04] VITALS: BP 140/69
[2017-08-04 05:29] LABS: MANUAL DIFF NEEDED? NO
[2017-08-04 05:36] LABS: BASO% 0.1 % (0.0-0.8); EOS# 0.16 X1000 (0.0-0.7); EOS% 2.1 % (0.0-10.0); HEMATOCRIT 34.7 % (37.0-47.0); HEMOGLOBIN 11.5 g/dL (12.0-16.0); IMM GRAN# 0.06 X1000 (0.0-0.04); IMM GRAN% 0.8 % (0.0-0.5); LYMPH# 1.22 X1000 (1.2-3.4); LYMPH% 15.7 % (20.5-51.1); MCH 28.9 PG (27-31); MCHC 33.1 g/dL (33-37); MCV 87.2 FL (81-99); MONO# 0.66 X1000 (0.11-0.59); MONO% 8.5 % (1.7-9.3); MPV 9.5 FL (7.4-10.4); NEUT% 72.8 % (42.2-75.2); PLT 280 X1000 (130-400); RBC 3.98 XMIL (4.2-5.4)
[2017-08-04 05:50] LABS: AGAP 11; BUN 5 mg/dL (8-22); CALCIUM 8.2 mg/dL (8.8-10.2); CHLORIDE 99 mmol/L (98-107); COSMO 276; POTASSIUM 3.5 mmol/L (3.5-5.1); SODIUM 140 mmol/L (136-145); TCO2 30 mmol/L (25-35)
[2017-08-04] MEDS: PRILOSEC PO SCH (06:24)
[2017-08-04] MEDS: OXY IR PO PRN (08:22)
[2017-08-04] MEDS: VITAMIN B-12 PO SCH (08:27)
[2017-08-04] MEDS ORDERED: NORCO-10 PO PRN (08:38)
[2017-08-04] MEDS ORDERED: FOLIC ACID PO SCH (09:00)
[2017-08-04] MEDS ORDERED: KEFLEX PO SCH (21:00)
--- NOTE | 2017-08-05 04:32 | DISCHARGE SUMMARY ---
ADMISSION DATE: 07/27/2017 DISCHARGE DATE: 08/04/2017 DISPOSITION: Home. FOLLOWUP: 1. Matthias Powers MD 2. Samuel Tovar MD CONSULTATIONS: 1. During this admission Hematology/Oncology was consulted. Patient was seen by Samuel Tovar MD. 2. Urology was consulted. Patient was seen by Matthias Powers MD. INVASIVE PROCEDURES DONE DURING THIS ADMISSION: Laparoscopic assisted left radical nephrectomy was done by a Dr. Powers on 08/02/2017. ADMISSION DIAGNOSES: 1. Left renal mass, likely renal cell carcinoma. 2. Urinary tract infection. 3. Intractable nausea and vomiting. 4. Hypokalemia. DIAGNOSES AT THE TIME OF DISCHARGE: 1. Left renal mass suspicious for malignancy, status post left laparoscopic robot assisted radical nephrectomy. 2. Escherichia coli urinary tract infection with bacteremia. 3. Normocytic anemia secondary to chronic illness. 4. Folate deficiency. 5. Relative iron deficiency. DISCHARGE MEDICATIONS: 1. Omeprazole 20 mg daily. 2. Cyanocobalamin 2,,500 daily. 3. Cephalexin 500 b.i.d. 4. Colace 100 mg b.i.d. 5. Iron sulfate 325 b.i.d. 6. Folic acid 1 mg daily. 7. Oxybutynin 5 mg q.8 p.r.n. 8. [place] 10 q.4 p.r.n. 9. Promethazine 25 mg q.6h p.r.n. PRESENTING COMPLAINT: Multi-system night sweats, nausea, and dizziness. PRESENTING COMPLAINT: Ms. Knight is a 57-year-old female, with no remarkable medical history, who presented with about a 2 month history of decreased appetite, nausea, vomiting, night sweats, chills, and lack of energy. Was evaluated in the emergency unit and a CT scan of the abdomen was done which revealed a large left renal mass suspicious for malignancy. Patient was admitted subsequently for workup. HOSPITAL COURSE: Patient did pretty well during the hospital stay. Was adequately hydrated. Cultures were done which revealed Escherichia coli bacteremia and also urinary tract infection. The patient was treated accordingly and transitioned from IV antibiotics to p.o., depending on the culture report. Subsequent blood culture became negative. Patient had urological intervention by Dr. Powers and she tolerated the procedure without any complications. Blood counts were followed- up postoperatively. The patient had 2 units of PRBC transfusion during surgery because of blood loss. Today, she refers to be doing a lot better. Clinically stable, just minimal pain in the abdomen. Her vitals are stable. Blood pressure is 149/69, pulse of 91, respirations 13, temperature 98.1 degrees. Physical exam is completely unremarkable. Patient is clinically stable for discharge. She is going to followup with Dr. Tovar and Dr. Powers. At the time of discharge we are still pending the pathology report on the left renal mass and then plan will be to alert according to the pathology report on outpatient basis. TIME SPENT FOR DISCHARGE: Thirty-seven minutes. cc: Hira Wong MD
== END 2017-08-04 11:58 | disposition home or self-care (01) ==
LOC: ED 13:21 → 3N 16:00 → SUATTDRO 16:00 → 4N 08-02 17:50
PROVIDERS: ATTEND Internal Medicine